=== PATIENT | male | born 1930 | race Caucasian/White ===

== ENCOUNTER 2016-08-02 23:08 | Inpatient (IN) | payer MEDICARE, OTHER ==
[~2016-08-02] VITALS: Ht 170.2 cm; Wt 61.5 kg
[2016-08-02 23:14] VITALS: BP 150/52; PULSE 66; RESP 18; O2SAT 98
--- NOTE | 2016-08-02 23:21 | ED.REPORT ---
HPI-General Illness Date of Service Aug 02, 2016 ED Provider: Niles Becerra DO An 85 year old male with a history of prostate cancer, hyperbaric treatments and hypertension presents to the ED complaining of throat pain and abdominal pain. The pt began experiencing this pain while alone at home today and felt "sicker and sicker." He became afraid and called his family this evening, telling them that he felt unwell. He stated that his "abdomen was on fire" and he vomited small amounts of clear liquid, though he denies chest pain. Per family, the pt looked unwell when they arrived. The pt was taking metoprolol until 1.5 weeks ago. Nursing Notes Stated Complaint: ABDOMINAL/CHEST/THROAT PAIN Chief Complaint: Male Abdominal Pain Nursing Notes Reviewed: Yes Allergies: Coded Allergies: No Known Allergies (Verified , 05/31/03) Scheduled Atorvastatin (Lipitor) 10 Mg Tab 10 MG PO DAILY Levothyroxine (Levothyroxine) 75 Mcg Tablet 75 MCG PO DAILY Metoprolol Succinate ER (Metoprolol Succinate ER) 25 Mg Tab.er.24h 12.5 MG PO DAILY Omeprazole (Omeprazole) 20 Mg Capsule.dr 20 MG PO DAILY Miscellaneous Medications Multivitamin (Multivitamins) 1 Each Capsule 1 EACH PO General Time Seen by MD: 23:20 Chief Complaint Other (Throat pain) Hx Obtained From: Patient, Other family... Arrived By: Walk-in Sudden in Onset?: No Onset Occurred: 5 - 8 hours ago Symptom Duration: Since onset Recent Healthcare: Recent doctor visit Similar Sx Previous: No Past Medical History Past Medical History hyperbaric treatment prostate cancer thyroid Past Surgical History none reported Smoking History Unknown if Ever Smoker Social History Other Social History: Good social support, Lives alone Ambulatory Status Independent Review of Systems throat pain Full Review of Systems Constitutional: Denies: Fever Respiratory: Denies: Non-productive cough, Shortness of breath Cardiovascular: Denies: Chest pain GI: Reports: Abdominal pain, Nausea, Vomiting Musculoskeletal: Denies: Back pain Skin: Denies Rash Complete sys rev & neg: except as marked. Physical Exam Vital Signs Vital Signs Date Time Temp Pulse Resp B/P Pulse Ox O2 Delivery O2 Flow Rate FiO2 08/03/16 03:34 62 16 136/51 99 Room Air 08/03/16 01:47 56 16 155/46 96 Room Air 08/02/16 23:14 37.0 66 18 150/52 98 Room Air Initial VS: Reviewed General/Constitutional: Awake, Alert Head / Eyes: Atraumatic, Normocephalic, PERRL, EOMI ENT: Atraumatic, Airway patent, Mucous membranes moist Neck: Atraumatic, Supple, Full range of motion Respiratory / Chest: Atraumatic, Breath sounds NL, Breath sounds = bilat, No respiratory distress Cardiovascular: Heart rate NL, Regular rhythm systolic ejection murmur Abdomen: Atraumatic, Soft Bowel Sounds / Distention: Positive: Bowel sounds hyperactive midline abdominal tenderness Back: Atraumatic, Full range of motion Upper Extremities Upper Extremity / MS: Atraumatic, Full range of motion Lower Extremity / Pelvis / MS: Atraumatic, Full range of motion Skin: Atraumatic, Color NL, No rash, Warm, Dry Neurologic: Oriented X3, Speech NL, No motor deficits, No sensory deficits Psychiatric: Affect NL, Mood NL Interpretation & Diagnostics Interpretation & Diagnostics: CT Pulmonary Angiogram: IMPRESSION: No evidence for PE. Cardiomegaly with prominence of the upper lobe and central pulmonary veins and bilateral pleural effusions. In the proper clinical setting pulmonary venous hypertension should be considered. Lab Results Interpretation Result Diagram: 08/02/16 2335 08/02/16 2335 Test 08/02/16 23:35 08/03/16 01:53 08/03/16 02:55 White Blood Count 6.8th/mm3 (3.8-10.1) Red Blood Count 3.88mil/mm3 (4.40-5.80) Hemoglobin 12.3g/dL (13.8-17.2) Hematocrit 38.2% (41.0-50.0) Mean Corpuscular Volume 98.5fL (81-100) Mean Corpuscular Hemoglobin 31.7pg (27.0-35.0) Mean Corpuscular Hemoglobin Concent 32.2% (32.0-37.0) Red Cell Distribution Width 13.7% (12.3-15.4) Platelet Count 246bil/L (150-400) Neutrophils (%) (Auto) 66.4% (40-74) Lymphocytes (%) (Auto) 15.4% (14-46) Monocytes (%) (Auto) 14.6% (4-12) Eosinophils (%) (Auto) 3.4% (0-5) Basophils (%) (Auto) 0.1% (0-3) D-Dimer < 0.50mg/L FEU (<0.50) Sodium Level 143mEq/L (134-144) Potassium Level 4.5mEq/L (3.5-5.2) Chloride Level 105mEq/L (97-108) Carbon Dioxide Level 25mmol/L (18-29) Blood Urea Nitrogen 27mg/dL (8-27) Creatinine 0.60mg/dL (0.76-1.27) Estimat Glomerular Filtration Rate 135mL/min (>59) Glucose Level 116mg/dL (60-99) Calcium Level 9.3mg/dL (8.5-10.1) Magnesium Level 2.1mg/dL (1.6-2.6) Total Bilirubin 0.3mg/dL (0.0-1.2) Aspartate Amino Transf (AST/SGOT) 26U/L (0-50) Alanine Aminotransferase (ALT/SGPT) 21U/L (0-44) Alkaline Phosphatase 78U/L (25-160) Total Protein 6.5g/dL (6.4-8.4) Albumin 3.8g/dL (3.4-5.0) Lipase 30U/L (13-60) Hold Myrick Top Tube Received (Received) Urine Color Yellow (YELLOW) Urine Appearance Clear (CLEAR,HAZY) Urine pH 6.5 (5.0-8.0) Urine Specific [place] 1.015 (1.003-1.035) Urine Protein Negativemg/dL (NEG,TRACE) Urine Glucose (UA) Negativemg/dL (NEGATIVE) Urine Ketones Negativemg/dL (NEGATIVE) Urine Occult Blood Negative (NEGATIVE) Urine Nitrite Negative (NEGATIVE) Urine Bilirubin Negative (NEGATIVE) Urine Urobilinogen Normalmg/dL (NORMAL) Urine Leukocyte Esterase Negative (NEGATIVE) Urine RBC 0-2/hpf (0-2) Urine WBC 0-5/hpf (0-5) Urine Epithelial Cells Occasional/hpf (NONE-MOD) Urine Crystals None seen (NONE SEEN) Urine Bacteria None/hpf (NONE-FEW) Urine Hyaline Casts None/lpf (NONE) Urine Granular Casts None seen (NONE SEEN) Urine Waxy Casts None seen (NONE SEEN) Urine Red Blood Cell Casts None seen (NONE SEEN) Urine White Blood Cell Casts None seen (NONE SEEN) Urine Mucus None seen (None Seen) Urine Trichomonas None seen (NONE SEEN) Urine Yeast None (NONE SEEN) Urine Culture Reflexed Not indicated Triglycerides Level 47mg/dL (0-149) Cholesterol Level 165mg/dL (100-199) LDL Cholesterol, Calculated 102.600mg/dL (0-99) VLDL Cholesterol 9.400mg/dL HDL Cholesterol 53mg/dL (>39) Cholesterol/HDL Ratio 3.11 (0.0-4.4) Thyroid Stimulating Hormone (TSH) 1.930uIU/mL (0.450-4.500) Pulse Oximetry Interpretation Pulse Oximetry Interpretation: 98% on room air Pulse Oximetry: Pulse Ox normal ECG Interpretation ECG Interpretation: normal sinus rhythm with a rate of 61 Time: 23:23 Interpreted by: ED physician ECG Interpretation: sinus or ectopic atrial rhythm with a rate of 60 Time: 01:32 Interpreted by: ED physician X-Ray Chest Interpretation Chest Xray Interpretation: chronic fibrotic changes vs. pulmonary edema Interpretation / Wet Read by: Wet read ED physician CT Abd / Pelvis Interpretation IMPRESSION: No CT findings to explain the patient's clinical symptoms. Interpretation / Wet Read by: Interpret - Radiologist Re-Eval/Medical Decision Med Decision/Clinical Course Severe epigastric abdominal pain rating up to his neck. Evidence of non-STEMI biochemically. CT chest and pelvis did not show dissection or pulmonary emboli or contra indications to heparin. Patient was heparinized, treated with aspirin , nitrates and fentanyl. He was admitted in stable condition. Source of Hx: Old records Time of Eval: 01:11 Patient Status: Condition improved Re-Evaluation/Progress Note: Pt rechecked, who is resting comfortably. He is informed of his radiology results and the need for admission. The diagnosis and plan for discharge are discussed. The pt understands and agrees with the plan. All questions are addressed at this time. Time of Eval: 03:20 Patient Status: Condition improved Re-Evaluation/Progress Note: Pt rechecked, who is resting. Pt is informed of radiology results and final plan for admission. Consultation : Referral / Consult Name: Rachel Crow DO Call Returned at: 03:23 Bilingual Hr Generalist: Agrees with eval, Agrees with plan, Accepts admit Note: Spoke with Dr. Sullenberger, hospitalist, regarding pt's case. Dr. Crow agrees with the evaluation and agrees to admit the pt. Counseled Regarding: Diagnosis, Lab results, Need for admission Discharge & Departure Primary Impression: Chest pain Chest pain type: unspecified Qualified Code: R07.9 - Chest pain, unspecified Additional Impressions: Abdominal pain Abdominal location: unspecified location Qualified Code: R10.9 - Unspecified abdominal pain Elevated troponin Disposition: ADMITTED TO HOSPITAL Discharge Condition All VS Reviewed: Yes Condition: Stable Referrals: Holland De Anda MD (PCP) Gauri Attestation Portions of this note were transcribed by Casie Rodriguez. I, Dr. Becerra personally performed the history, physical exam and medical decision-making; I reviewed and confirmed the accuracy of the information in the transcribed note. Signed by: Gauri Melgar, 08/03/16 and 0343. copies to: Holland De Anda MD, Todd P DO Aug 02, 2016 23:21 CASIE RODRIGUEZ Aug 02, 2016 23:40
[2016-08-02 23:42] LABS: BASOPHILS % (AUTO) 0.1 % (0-3); EOSINOPHILS % (AUTO) 3.4 % (0-5); MONOCYTES % (AUTO) 14.6 % (4-12); Mean Corpuscular Hemoglobin 31.7 pg (27.0-35.0); Mean Corpuscular Volume 98.5 fL (81-100); NEUTROPHILS % (AUTO) 66.4 % (40-74); Platelet Count 246 bil/L (150-400)
[2016-08-03] VITALS (11 sets, daily range): BP systolic 126–155; BP diastolic 46–99; PULSE 48–79; RESP 16–18; O2SAT 96–99
[2016-08-03 00:20] LABS: Magnesium 2.1 mg/dL (1.6-2.6)
[2016-08-03] MEDS ORDERED: Nitroglycerin 2% 1 Gm Ointment TOPICAL ONE (01:15)
[2016-08-03 02:03] LABS: APPEARANCE,URINE CLEAR (CLEAR,HAZY); COLOR,URINE YELLOW (YELLOW); OCCULT BLOOD,URINE NEGATIVE (NEGATIVE); PH,URINE 6.5 (5.0-8.0); UROBILINOGEN,URINE NORMAL (NORMAL)
[2016-08-03] MEDS ORDERED: fentaNYL-PF 50 mCg/mL 2 mL Inj IVPUSH PRN (02:20)
[2016-08-03] MEDS ORDERED: Heparin 5,000 Unit/mL Inj IVPUSH ONE (03:25)
[2016-08-03] MEDS ORDERED: Senna-Docusate 8.6-50 mg Tablet PO PRN (04:00)
[2016-08-03] MEDS ORDERED: Alum-Mag Hydrox-Simeth 30 mL Suspension PO PRN (04:00)
[2016-08-03] MEDS ORDERED: Ondansetron 2 mg/mL 2 mL Inj IVPUSH PRN (04:00)
[2016-08-03] MEDS ORDERED: Polyethylene Glycol (PEG) 17 Gm Powder PO PRN (04:00)
[2016-08-03] MEDS ORDERED: Atropine 1 mg/10 mL (Code) Syringe IVPUSH PRN (04:00)
--- NOTE | 2016-08-03 04:18 | PCM.HPMED ---
Subjective Date of Service Aug 03, 2016 Primary Provider: Admitting Physician: Rachel Crow DO Primary Care Physician: Holland De Anda MD Attending Physician: Rachel Crow DO Admit Status: From the Emergency Department Chief Complaint: Chest Pain History of Present Illness: 85yo man with history of prostate cancer s/p radiation reports 2 days of feeling a bit sick at his stomach which worsened last evening with intense epigastric pain, chest pain, and throat discomfort accompanied by an episode of vomiting. In the emergency room he had unconcerning EKG x2 but did have rising troponin: 0.016 to 0.019. CTA negative for PE but positive for cardiomegaly and bilateral pleural effusions. CT abdomen without explanation for abdominal pain but positive for aortic calcifications. One inch of Nitrobid was applied with good effect. At 0400 he is resting comfortably in the ER with only complaint being throat discomfort, reports that abdominal and chest pain has resolved. He denies cough, edema, heat/cold intolerance, numbness/tingling. He does have slow urinary stream associated with the prostate cancer radiation and has had hyperbaric treatments for that condition. Review of Systems: 14 point ROS is negative except as noted above in the HPI Allergies Coded Allergies: No Known Allergies (Verified , 05/31/03) Home Medications Daughter will bring in home medications this morning. She was not sure of names or doses. She told the ED that he stopped taking Metoprolol 1.5 weeks ago and that he takes a thyroid medication. 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 External ears normal, hard of hearing. Eyes: PERRLA, EOMI. Anicteric sclerae. Mouth: Mouth Normal, Mucous Membranes Moist/[place] Neck: Neck supple with full range of motion. Chest & Lungs: Clear to auscultation bilaterally with no crackles, wheezes, or rhonchi. Cardiovascular: Regular Rate/Rhythm, Normal S1, Normal S2, No Murmurs/Rubs/ Gallops Abdomen: mild epigastric tenderness, Non-distended, No masses, Normoactive bowel tones, Soft Musculoskeletal: Normal Range of Motion Extremities: No cyanosis/clubbing/edema bilaterally Neurological: Grossly Neurologically Intact, Cranial Nerves 2-12 Intact, Normal Speech Lab and Diagnostics Labs Laboratory Tests Test 08/02/16 23:35 08/03/16 01:53 08/03/16 02:55 White Blood Count 6.8th/mm3 (3.8-10.1) Red Blood Count 3.88mil/mm3 (4.40-5.80) Hemoglobin 12.3g/dL (13.8-17.2) Hematocrit 38.2% (41.0-50.0) Mean Corpuscular Volume 98.5fL (81-100) Mean Corpuscular Hemoglobin 31.7pg (27.0-35.0) Mean Corpuscular Hemoglobin Concent 32.2% (32.0-37.0) Red Cell Distribution Width 13.7% (12.3-15.4) Platelet Count 246bil/L (150-400) Neutrophils (%) (Auto) 66.4% (40-74) Lymphocytes (%) (Auto) 15.4% (14-46) Monocytes (%) (Auto) 14.6% (4-12) Eosinophils (%) (Auto) 3.4% (0-5) Basophils (%) (Auto) 0.1% (0-3) Activated Partial Thromboplast Time 25.2sec (22.8-33.0) D-Dimer < 0.50mg/L FEU (<0.50) Sodium Level 143mEq/L (134-144) Potassium Level 4.5mEq/L (3.5-5.2) Chloride Level 105mEq/L (97-108) Carbon Dioxide Level 25mmol/L (18-29) Blood Urea Nitrogen 27mg/dL (8-27) Creatinine 0.60mg/dL (0.76-1.27) Estimat Glomerular Filtration Rate 135mL/min (>59) Glucose Level 116mg/dL (60-99) Calcium Level 9.3mg/dL (8.5-10.1) Magnesium Level 2.1mg/dL (1.6-2.6) Total Bilirubin 0.3mg/dL (0.0-1.2) Aspartate Amino Transf (AST/SGOT) 26U/L (0-50) Alanine Aminotransferase (ALT/SGPT) 21U/L (0-44) Alkaline Phosphatase 78U/L (25-160) Troponin T 0.016ug/L (0.0-0.011) 0.019ug/L (0.0-0.011) Total Protein 6.5g/dL (6.4-8.4) Albumin 3.8g/dL (3.4-5.0) Lipase 30U/L (13-60) Hold Myrick Top Tube Received (Received) Urine Color Yellow (YELLOW) Urine Appearance Clear (CLEAR,HAZY) Urine pH 6.5 (5.0-8.0) Urine Specific [place] 1.015 (1.003-1.035) Urine Protein Negativemg/dL (NEG,TRACE) Urine Glucose (UA) Negativemg/dL (NEGATIVE) Urine Ketones Negativemg/dL (NEGATIVE) Urine Occult Blood Negative (NEGATIVE) Urine Nitrite Negative (NEGATIVE) Urine Bilirubin Negative (NEGATIVE) Urine Urobilinogen Normalmg/dL (NORMAL) Urine Leukocyte Esterase Negative (NEGATIVE) Urine RBC 0-2/hpf (0-2) Urine WBC 0-5/hpf (0-5) Urine Epithelial Cells Occasional/hpf (NONE-MOD) Urine Crystals None seen (NONE SEEN) Urine Bacteria None/hpf (NONE-FEW) Urine Hyaline Casts None/lpf (NONE) Urine Granular Casts None seen (NONE SEEN) Urine Waxy Casts None seen (NONE SEEN) Urine Red Blood Cell Casts None seen (NONE SEEN) Urine White Blood Cell Casts None seen (NONE SEEN) Urine Mucus None seen (None Seen) Urine Trichomonas None seen (NONE SEEN) Urine Yeast None (NONE SEEN) Urine Culture Reflexed Not indicated Result Diagram: 08/02/16 5497 08/02/16 7059 X-Rays, CTs and MRIs CT Pulmonary Angiogram: IMPRESSION: No evidence for PE. Cardiomegaly with prominence of the upper lobe and central pulmonary veins and bilateral pleural effusions. In the proper clinical setting pulmonary venous hypertension should be considered. X-Ray Chest Interpretation Chest Xray Interpretation: borderline cardiomegaly chronic fibrotic changes vs. pulmonary edema Interpretation / Wet Read by: Wet read ED physician, also reviewed by myself CT Abd / Pelvis Interpretation IMPRESSION: No CT findings to explain the patient's clinical symptoms. Interpretation / Wet Read by: Interpret - Radiologist In addition there are extensive aortic calcifications (Dr Lo) 12-lead ECG EKG x2 in the ER showing NSR with rate of 60 and 61 Assessment & Plan Very pleasant and largely deaf 85yo man presents with abdominal/chest/throat pain and rising troponins. Symptoms resolved with nitropaste. 1. Chest pain, POA, likely secondary to ACS with rising troponins, responsive to nitro paste. ROQUE score indicates intermediate risk of cardiac event. -Aspirin 324mg, Heparin 4500 given in ER -Heparin Drip per cardiac protocol ordered -Echo ordered for morning -NS 80ml/hr IV for maintenance -NPO pending Echo for possible other intervention today 2. Hypothyroidism POA, likely history but patient unsure, confirm with daughter today. 3. Heart condition unknown, daughter not sure, request outpatient records, may have been on Metoprolol in the past. PRN medications for nausea, constipation, GERD: Ondansetron, Maalox, Miralax, Senna Pain Evaluation: Adequate Pain Control GI Prophylaxis: Not indicated Resuscitation Status: DNR/DNI:Do Not Resuscitate/Intubate Limited Interventions: Medications and IV Fluid Attending Statement The patient was seen and examined together with house staff on 08/03/2016 and I agree with the history, exam and plan as outlined in the note above. Buzz Lo DO Aug 03, 2016 04:18 Rachel Crow DO August 16, 2016 05:39
[2016-08-03] MEDS ORDERED: Heparin 25K Unit/500mL 0.45 NS 25,000 UNIT in IV Premix 1 EACH IV ONE (04:20)
[2016-08-03] MEDS: 0.9% Sodium Chloride 1,000 ML IV SCH ×2 (04:33→17:46)
[2016-08-03] MEDS ORDERED: Heparin Protocol Boluses IVPUSH PRN (05:20)
[2016-08-03] MEDS ORDERED: Heparin 25K Unit/500mL 0.45 NS 25,000 UNIT in IV Premix 1 EACH IV SCH (05:20)
--- NOTE | 2016-08-03 05:48 | NUR ---
Admit Arrive from ER accompanied by dtr. A/O, forgetful, [place]. SBA to BS, pt weak and tremulous. Denies pain, dyspnea, N/V. No current abdominal pain. Void w/ BM on BSC. Admit done w/ pt as dtr left for home. Dtr did not know all of pt's meds or dose amts. Tele SR/SB, PVCs. Moderately high BP. RA sats in the high 90s. Resting quietly. Addendum: 08/03/16 at 0554 by TAMIA DE LA CRUZ RN IVF and cardiac heparin drip initiated.
--- NOTE | 2016-08-03 07:58 | DRSVH ---
PROCEDURE: X-RAY CHEST ONE VIEW, PORTABLE ([id number]) INDICATIONS: chest pain TECHNIQUE: One view of the chest was acquired. COMPARISON: [facility], CT, CT ANGIO CHEST PE, 08/03/2016, 2:33. [facility], CR, CH EST 1 VIEW, 09/15/2013, 0:31. [facility], CR, XR CHEST 2VW, 04/26/2016, 17:58. FINDINGS: Surgical changes and devices: None. Lungs and pleura: Chronic interstitial prominence. There is no complaint infiltrate in the right mid to lower lung zone. No pleural effusions or pneumothorax. Mediastinum: Mediastinal contours appear normal. Heart size is normal. Bones and chest wall: No suspicious bony lesions. Overlying soft tissues appear unremarkable. IMPRESSION: Chronic interstitial lung disease and possible superimposed pneumonia in the right mid to lower lung zone. Recommend clinical correlation. Dictated by: Bernice Palmer M.D. on 08/03/2016 at 7:55 Approved by: Bernice Palmer M.D. on 08/03/2016 at 7:56
[2016-08-03] MEDS: Sodium Chloride LOK Flush 10 mL Syringe IVFLUSH SCH ×3 (08:04→21:24)
--- NOTE | 2016-08-03 08:32 | PCM.PNMED ---
Subjective Date of Service Aug 03, 2016 Subjective He denies any chest pain or shortness of breath. He did have some abdominal discomfort yesterday. No nausea or vomiting. He does have some cognitive impairment and does not know what year it is. No overnight events. He does have intermediate level troponin elevations. His initial ECG with nonspecific ST depressions anterolateral segments. He did have a stent placed in a report about 5 years ago. Exam Vital Signs Vital Sign - Last Date Time Temp Pulse Resp B/P Pulse Ox O2 Delivery O2 Flow Rate FiO2 08/03/16 05:08 63 08/03/16 05:07 Room Air 08/03/16 04:20 36.6 18 153/59 98 Intake and Output 08/02/16 08/02/16 08/03/16 Cumulative From/Thru 14:59 22:59 06:59 08/02/16 23:14 - 08/03/16 06:11 Intake Total 0 ml 0 ml Output Total 300 ml 300 ml Balance -300 ml -300 ml Intake Oral 0 ml 0 ml Output Urine Total 300 ml 300 ml # Voids 1 1 # Bowel Movements 1 1 Exam Alert and oriented 2, does not know year. No distress. Fluent speech Anicteric sclera. Lungs are clear with normal rate and effort Heart is regular without murmur gallop or rub Abdomen soft nontender, flat Extremities are free of edema. Skin is free of rash or lesions. IVs and Medications Medications Reviewed: Medications were reviewed in detail Lab and Diagnostics Result Diagram: 08/02/16 2335 08/02/16 233 X-Rays, CTs and MRIs CT Pulmonary Angiogram: IMPRESSION: No evidence for PE. Cardiomegaly with prominence of the upper lobe and central pulmonary veins and bilateral pleural effusions. In the proper clinical setting pulmonary venous hypertension should be considered. X-Ray Chest Interpretation Chest Xray Interpretation: borderline cardiomegaly chronic fibrotic changes vs. pulmonary edema Interpretation / Wet Read by: Wet read ED physician, also reviewed by myself CT Abd / Pelvis Interpretation IMPRESSION: No CT findings to explain the patient's clinical symptoms. Interpretation / Wet Read by: Interpret - Radiologist In addition there are extensive aortic calcifications (Dr Lo) 12-lead ECG EKG x2 in the ER showing NSR with rate of 60 and 61 Assessment & Plan Very pleasant and largely deaf 85yo man presents with abdominal/chest/throat pain and rising troponins. Symptoms resolved with nitropaste. 1. Chest pain, POA, likely secondary to ACS with rising troponins, responsive to nitro paste. ROQUE score indicates intermediate risk of cardiac event. -Aspirin 324mg, Heparin 4500 given in ER -Heparin Drip per cardiac protocol ordered -Echo ordered for morning -NS 80ml/hr IV for maintenance -NPO pending Echo for possible other intervention today We will discuss with cardiology this morning. The patient will also be started on a beta babs. 2. Hypothyroidism POA, likely history but patient unsure, confirm with daughter today. 3. Heart condition unknown, daughter not sure, request outpatient records, may have been on Metoprolol in the past. We are trying to obtain coronary catheterization and PCI records from [facility] this morning. PRN medications for nausea, constipation, GERD: Ondansetron, Maalox, Miralax, Senna This patient as inpatient status with over 2 nights anticipated GI Prophylaxis: Not indicated Resuscitation Status: DNR/DNI:Do Not Resuscitate/Intubate Limited Interventions: Medications and IV Fluid Sy Byrd MD Aug 03, 2016 08:32
--- NOTE | 2016-08-03 09:45 | DRSVH ---
PROCEDURE: CT ANGIO CHEST PULMONARY EMBOLISM ([id number]) INDICATIONS: chest pain, nonstemi, abnominal pain TECHNIQUE: After the administration of intravenous contrast, 2 mm thick sections acquired from the pulmonary api meet to the posterior costophrenic angles. 3-dimensional maximum intensity projection (MIP) coronal a nd sagittal reformats were then acquired through the thorax. For radiation dose reduction, the follo wing was used: automated exposure control, adjustment of mA and/or kV according to patient size. COMPARISON: [facility], CT, CT ABD PELVIS W CON, 08/03/2016, 2:33. FINDINGS: Image quality: Excellent. Pulmonary arteries: Pulmonary arteries are normal in size, and demonstrate no intraluminal filling d efects to suggest central pulmonary embolism. Lungs and pleura: There is diffuse peripheral interstitial prominence. Lung volumes are low. No pleur al effusion or pneumothorax. Mediastinum: Heart size is normal, without pericardial effusion. No mediastinal or hilar adenopathy . Thoracic aorta is normal in caliber and enhancement. Scattered atheromatous calcifications are pre sent within the aortic arch. Esophagus is normal in caliber, without hiatal hernia. Bones and chest wall: No suspicious bony lesions. Ribs and thoracic spine appear intact throughout. Severe wedge compression deformities at T12 and L1 are unchanged. Thyroid gland is unremarkable. N o axillary or supraclavicular adenopathy. Abdomen: Visualized upper abdominal solid organs appear normal in the early arterial phase of enhanc ement. IMPRESSION: 1. No acute pulmonary embolus. 2. Diffuse interstitial prominence in the periphery of the lung. Differential considerations include fibrotic changes versus pulmonary edema. Note: The preliminary [facility] interpretation and the final report are concordant. Dictated by: Herminia Greer M.D. on 08/03/2016 at 9:25 Approved by: Herminia Greer M.D. on 08/03/2016 at 9:44
--- NOTE | 2016-08-03 09:53 | DRSVH ---
PROCEDURE: CT ABDOMEN AND PELVIS WITH CONTRAST ([id number]) INDICATIONS: chest pain, nonstemi, abnominal pain TECHNIQUE: After the administration of intravenous contrast, 5 mm thick sections acquired from the diaphragm to the symphysis. 5 mm coronal and sagittal reformats were acquired. For radiation dose reduction, the following was used: automated exposure control, adjustment of mA and/or kV according to patient leland marks. COMPARISON: [facility], CR, XR CHEST 2VW, 04/26/2016, 17:58. FINDINGS: Image quality: Excellent. ABDOMEN: Lung bases: Interlobular septal thickening is present within the periphery of the lung bases suggesti ng pulmonary fibrosis. No pleural effusion or pneumothorax. The heart is mildly enlarged. Solid organs: Liver and spleen are normal in size and enhancement. Gallbladder is surgically absent . Biliary system is non dilated. Pancreas enhances normally. No adrenal nodules. Kidneys demonstr ate normal size and enhancement, without hydronephrosis. Multiple low density cystic lesions are pre sent within the right kidney which likely represent simple renal cysts. Peritoneum and bowel: There is a small hiatal hernia. Bowel loops demonstrate normal wall thickness a nd caliber. The appendix is not visualized; however there is no discrete right lower quadrant fluid o r fat stranding to suggest acute appendicitis. There are scattered sigmoid diverticula. No evidence f or diverticulitis. No free fluid or air. Nodes and vessels: No retroperitoneal or mesenteric adenopathy by size criteria. Aorta and inferior vena cava are normal in size. There are scattered atheromatous calcifications throughout the aorta and iliac arteries bilaterally. Miscellaneous: No ventral hernias. PELVIS: Genitourinary: Bladder wall thickness is normal. Miscellaneous: No inguinal hernias or adenopathy. Bones: No suspicious bony lesions. No vertebral body compression fractures. IMPRESSION: 1. No acute intra-abdominal findings. The appendix is not visualized; however there are no ancillary findings to suggest acute appendicitis. 2. Diverticulosis. No acute diverticulitis. Note: The preliminary [facility] interpretation and the final report are concordant. Dictated by: Herminia Greer M.D. on 08/03/2016 at 9:44 Approved by: Herminia Greer M.D. on 08/03/2016 at 9:52
[2016-08-03] MEDS ORDERED: OMEP20CA11 PO (09:58)
[2016-08-03] MEDS ORDERED: ATRV10T PO (09:58)
[2016-08-03] MEDS ORDERED: LEVO75TA4 PO (09:58)
[2016-08-03] MEDS ORDERED: METO25TA99 PO (09:58)
[2016-08-03] MEDS ORDERED: MULT1CAP33 PO (10:04)
--- NOTE | 2016-08-03 11:42 | DRSVH ---
[facility] [address] [place] [place] [address] Echocardiogram Report Name: LORENE YEPEZ FStudy Date: Height: 67 in Hospital Exam Location: [facility] Weight: 131 lb Gender: Male BSA: 1.7 m2 : 1930 Age: 85 yrs BP: 153/59 mmHg Reason For Study: CHEST PAILN Ordering Physician: [facility] Performed By: Carisa Burleson Referring Physician: Dr. Holland De Anda Interpretation Summary The ejection fraction is estimated to be 50-55%. Mild inferolateral hypkinesis. The right ventricle is at the upper limits of normal in size. The left atrium is severely dilated. There is mild mitral regurgitation. There is mild aortic valve sclerosis. There is mild aortic regurgitation. There is moderate tricuspid regurgitation. The right ventricular systolic pressure is estimated at 29 mmHg assuming a right atrial pressure of 3 mm Hg. Procedure: A two-dimensional transthoracic echocardiogram with color flow and Doppler was performed. The study quality was technically good. There is no prior echocardiogram noted for this patient. The patient was in a bradycardic rhythm during the exam. Left Ventricle: The left ventricle is normal in size, wall thickness, and systolic function without any focal wall motion abnormalities. The ejection fraction is estimated to be 50-55%. Mild inferolateral hypkinesis. Spectral Doppler of the mitral valve shows a normal E/A wave ratio. Right Ventricle: The right ventricle is at the upper limits of normal in size. The right ventricular systolic function is normal. Atria: The left atrium is severely dilated. The right atrium is mildly dilated. There is no Doppler evidence for an atrial septal defect. Mitral Valve: The mitral valve leaflets appear mildly thickened, but open well. There is mild mitral regurgitation. Aortic Valve: The aortic valve is trileaflet. The aortic valve opens well. The aortic valve is slightly calcified. There is mild aortic valve sclerosis. There is mild aortic regurgitation. Tricuspid Valve: The tricuspid valve leaflets are thin and pliable. There is moderate tricuspid regurgitation. The right ventricular systolic pressure is estimated at 29 mmHg assuming a right atrial pressure of 3 mm Hg. Pulmonic Valve: The pulmonic valve leaflets are thin and pliable; valve motion is normal. There is a trace or physiologic amount of pulmonic regurgitation. Great Vessels: The aortic root is normal size. The dimensions of the ascending aorta are normal. The pulmonary artery is normal size. The IVC is of normal diameter and collapses greater than 50% with a sniff. This suggests a low right atrial pressure of 3 mm Hg. Pericardium/ Pleura There is no pericardial effusion. There is no pleural effusion. MMode/2D Measurements & Calculations LVIDd: 4.1 cm LA dimension: 4.3 cm RA long axis LVOT diam: 2.2 cm LVIDs: 2.8 cm AoV Opening FS: 30.6 % LA A2 area: 31.4 cm RA area EPSS: 0.48 cm LA A4 area: 30.9 cm Ao root diam IVSd: 1.0 cm LA length (vol) : 20.9 cm LVPWd: 0.98 cm RA vol Aortic Jxn: 2.4 cm LA vol: 120.5 ml : 67.4 ml asc Aorta Diam LA vol index RA : 39.9 mm/ Ao Arch Diam (Prox : 71.3 ml/m2 RVDd major Trans): 2.6 cm : 6.6 cm LV singh. diameter/BSA LV sys. diameter/BSA RVD1 (basal) RVD2 (mid): 3.8 cm (cm/m^2): 2.4 (cm/m^2): 1.7 Doppler Measurements & Calculations Ao V2 max MV E max gray MV E/A: 1.1 TR max gray : 146.0 cm/sec : 54.7 cm/sec Pulm A Revs Dur : 256.6 cm/sec Ao max PG MV A max gray TR max P.3 mmHg : 8.5 mmHg : 51.7 cm/sec MV A dur: 0.12 sec PA V2 max Ao mean PG MV P1/2t : 126.7 cm/sec : 79.3 msec PA mean P.9 mmHg LVOT Max Gray MR ERO: 0.06 cm2 PA Accel Time : 79.4 cm/sec : 0.07 sec VIKAS(I,D): 1.9 cm sev ratio AI P1/2t : 539.8 msec AI dec slope : 194.0 cm/s2c MV dec time MV P1/2t max gray Ao V2 mean LV V1 max PG : 0.27 sec : 101.4 cm/sec MVA(P1/2t) Ao V2 VTI: 36.0 cm LV V1 VTI: 19.0 cm : 2.8 cm2 VIKAS(V,D): 2.0 cm2 MR flow rate PA V2 mean VIKAS indexed to BSA Pulm A Revs Dur - MV : 38.2 cm3/sec : 79.9 cm/sec (cm^2/m^2): 1.2 A Dur: 0.07 msec MR PISA radius Electronically signed by: Perez Loza on Reading Physician:08/03/2016 11:41 AM
--- NOTE | 2016-08-03 13:53 | NUR ---
Social Work- Initial Assessment Data: See Initial Assessment. Pt is a 85 year old male admitted 08/03/16 for Abdominal Pain and Chest Pain per H&P. Pt's insurance is [facility] and [employer] [facility]. Pt's PCP is Holland De Anda MD in [place], though pt states that he is looking to transfer PCP care to [place]. SW met with pt at bedside to discuss discharge plan, SW role explained. Pt alert and oriented x3. Pt resides at home alone in [place] where he receives assistance with ADLs from his daughter, Leona. Leona assists pt with meals, cleaning, medication management, driving, financial accountant. Pt is able to dress and clean himself independently and has grab bars in his shower. Pt has two homes, one in [place] and one in [place]. Pt states that he has been residing in [place] where he is about five blocks away from his daughter. Pt's grandson [place] Sung is also involved in pt's care, including home repairs, housekeeping, and emotional support. Pt [place] walker at [place] and does not drive. Pt has 6 steps into his home which he navigates successfully using railings. Pt has no HH or SNF history. Pt has no LTC or VA benefits. Pt states his DPOA is daughter Leona [phone]. SW encouraged him to ask Leona to bring in copy of DPOA paperwork. Pt requested information about assisted living, as he is aware that this may be the next step when he cannot live independently any longer. SW provided information regarding assisted living, including brochures and informative packets. Pt is aware that the resources provided by [facility] are not the only assisted living facilities in the area and that these packets are in no way preferences towards these facilities. Pt anticipated to discharge home with daughter to transport via POV. No anticipated discharge needs. SW will continue to follow, R/O Home Health at discharge. Assessment: Pt who resides home alone with assistance from daughter. Plan: Pt anticipated to discharge home with daughter to transport via POV. No anticipated discharge needs. SW will continue to follow, R/O Home Health at discharge. LINDA Branham Addendum: 08/03/16 at 1405 by SUSANA JEREZ SS Amended: Links added. Addendum: 08/03/16 at 1531 by SUSANA BAUTISTA [facility] spoke with daughter Leona and son Derrick at bedside with pt. [facility] role explained. Leona would like more information about private caregiving, [facility] provided her with "Hiring In Home Caregivers" packet and list through [facility]. Morena Jerez, VEST PRESSER
[2016-08-04 00:36] VITALS: PULSE 75
--- NOTE | 2016-08-04 01:36 | CONS ---
[address] [address] CONSULTATION REPORT PATIENT: LORENE YEPEZ : 1930 MR#: [id number] ADMIT: 08/03/2016 JOB ID: [id number] DATE OF SERVICE: 08/03/2016 CHIEF COMPLAINT: Abdominal pain and throat pain. HISTORY OF PRESENT ILLNESS: The patient is an 85-year-old man with history of coronary artery disease status post PCI with bare-metal stent to proximal RCA most recently in 2003. Cardiology is consulted to assist with management because the patient presented with severe burning abdominal pain. History is obtained from patient, his daughter Leona, and his son Derrick. The patient's recollection of the events, unfortunately, is complicated by his dementia. What he remembers is that he was at home and he had severe extreme burning pain in his abdomen. He does not recall associated chest pain, throat pain, nausea or vomiting. 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 So what she did, is she took him to [facility] and he was transferred subsequently to [facility]. She says that her father vomited clear emesis and also reported to her severe throat pain. It is not clear whether it was before or after he vomited. 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 PAST MEDICAL HISTORY: 1. Coronary artery disease as noted above. He had basically unstable angina. He underwent elective cardiac catheterization in 2003. Bare-metal stent was deployed to proximal right coronary artery, which unfortunately was occluded. The LAD was diffusely diseased. Fractional flow reserve at that time was 0.84 so it was not judged to be hemodynamically significant and was managed medically. a. The patient does not exactly recall the symptoms. His daughter and son think that his anginal equivalent was severe dyspnea on exertion, and they do not exactly recall if he had chest discomfort or neck pain with that. 2. Prostate cancer treated with intensity-modulated radiation therapy for prostate cancer in 2010, complicated by what sounds like radiation colitis, treated with hyperbaric oxygen chamber treatments. Most recent treatment was July 30. 3. Hyperlipidemia. 4. BPH. 5. Cholecystectomy. 6. Appendectomy. FAMILY HISTORY: Significant for dementia and heart disease in brother. Father with dementia. Mother with possibly blocked arteries at age 91. SOCIAL HISTORY: He is a lifetime nonsmoker. He says he lives with his daughter Leona. ALLERGIES: No known drug allergies. HOME MEDICATIONS: 1. Lipitor 10 mg daily. 2. Toprol-XL 25 mg pill, half a pill daily. 3. Levothyroxine 25 mcg daily. 4. Nitroglycerin as needed. REVIEW OF SYSTEMS: Significant for burning throat pain, emesis, and this severe abdominal pain is problem. Otherwise, a 10 point review of systems is negative. PHYSICAL EXAMINATION: Very pleasant elderly man in no apparent distress. Head: Normocephalic, atraumatic. Male pattern baldness. Temperature 36.3. Blood pressure 126/64, up to 164/46. Pulse 48, up to 79 beats per minute. Satting 98% to 99% on room air. Eyes: No scleral icterus. Neck: Supple. No carotid bruits. Heart: Normal S1, S2. No murmurs. Lungs: Clear to auscultation anteriorly. Abdomen: Soft with positive bowel sounds. No hepatosplenomegaly. Extremities: Warm, well perfused. No clubbing, cyanosis, edema. Skin: No rashes or lesions. Echocardiogram showed EF 50% to 55% with mild inferolateral hypokinesis. No significant valvular abnormalities were seen. No prior comparison was made. The patient's CBC is reassuring for age. Troponin T was most recently 0.021. Lipids are at goal. TSH is normal. Electrolytes normal. Transaminases are normal. Admission EKG showed normal sinus rhythm, normal axis. No left ventricular hypertrophy. No significant ST-segment changes on personal review. CT of the abdomen showed no abdominal aortic aneurysm or any other abdominal pathology to explain symptoms. CT PE protocol showed no pulmonary embolism. There was diffuse interstitial prominence in the periphery of the lung with differential diagnosis including fibrotic change versus pulmonary edema. ASSESSMENT AND PLAN: In summary, this is a delightful 85-year-old man with dementia, coronary artery disease, status post percutaneous intervention to occluded right coronary artery basically 15 years ago, who comes in with a minimally elevated troponin and history of abdominal discomfort. No cause of abdominal discomfort has been identified. He does not recall experiencing any chest pain or shortness of breath. Daughter recalls nausea and that he complained to her of throat pain. It is not clear whether severe abdominal pain caused him to have tachycardia and caused the troponin bump or whether this was a primary cardiac process. Either way, he is not a good candidate for invasive therapy due to advanced age, frailty and memory problems. I recommend for him to be treated medically with 48 hours of heparin drip and once that is completed he can be safely discharged home on his home medications. Right now, we are holding his Toprol-XL due to bradycardia. Will monitor closely and decide whether this is a medication that needs to be continued as an outpatient. Thank you very much for the opportunity to evaluate this patient.
[2016-08-04 03:16] LABS: BASOPHILS % (AUTO) 0.1 % (0-3); EOSINOPHILS % (AUTO) 7.3 % (0-5); MONOCYTES % (AUTO) 16.9 % (4-12); Mean Corpuscular Hemoglobin 32.1 pg (27.0-35.0); Mean Corpuscular Volume 97.5 fL (81-100); NEUTROPHILS % (AUTO) 54.3 % (40-74); Platelet Count 219 bil/L (150-400)
[2016-08-04 04:03] VITALS: BP 129/62; PULSE 60; RESP 18; O2SAT 95
[2016-08-04] MEDS: 0.9% Sodium Chloride 1,000 ML IV SCH (05:01)
--- NOTE | 2016-08-04 06:19 | NUR ---
Heparin gtt Pt currently infusing at 875units/hr of heparin gtt; therapeutic PTT x1. VSS, tele SB/SR 50s-80s. Pt denies any pain, dyspnea, or discomfort. Slightly forgetful and impulsive; bed alarm in place.
[2016-08-04 08:15] VITALS: BP 150/55; PULSE 81; RESP 16; O2SAT 95
[2016-08-04] MEDS: Sodium Chloride LOK Flush 10 mL Syringe IVFLUSH SCH (08:30)
[2016-08-04 10:39] VITALS: PULSE 62
[2016-08-04] MEDS ORDERED: ASPI81TA3 PO (11:18)
--- NOTE | 2016-08-04 11:25 | PCM.DIMED ---
Discharge Instructions Date of Service Aug 04, 2016 Dates of Hospitalization Aug 03, 2016 at 03:41 Discharge Diagnosis Discharge Diagnosis Dyspepsia and abdominal pain; chest pain, noncardiac; ruled out for myocardial infarction Medication Instructions No medications have been changed. We recommend regular use of psyllium powder ( Metamucil) which works both for constipation and diarrhea by providing fiber to the colon. We recommend to continue your gastric acid medication omeprazole, and to utilize Tums (calcium carbonate) as needed for stomach discomfort. Diet No restrictions Activity No restrictions Call your provider Other (dehydration, weight loss greater than 4 pounds over 2 days, chest or breathing complaints. ) Patient Instructions Evaluation of the heart revealed no signs of myocardial infarction. It is not clear what caused discomfort in the chest and throat, but this does not seem to be due to the heart. Follow-up plan Contact your primary care doctor for a follow-up posthospitalization appointment. You should discuss further management of abdominal pain, vomiting or diarrhea. Follow-up Provider: Holland De Anda MD Follow-up with PCP in: 1 week Benjamin William MD Aug 04, 2016 11:25
--- NOTE | 2016-08-04 11:37 | NUR ---
Social Work: Discharge Data: Pt is on day 1 of hospitalization. EMR reviewed. D/C orders are in. requested ALL RN for pt. MEAT CUTTER met with pt, states no preference for HH company after viewing choice list. MEAT CUTTER referred to rotating calendar, [facility] referred, access given, F2F ready for MD to sign. MEAT CUTTER called pt's daughter and notified her in a voice mail that pt will be discharging today. No further d/c planning needs at this time. MEAT CUTTER will continue to follow if needs arise. Assessment: Pt who is independent at baseline. Plan: Pt will d/c home via POV with [facility]. No further d/c planning needs at this time. MEAT CUTTER will continue to follow if needs arise. LINDA Arreola
[2016-08-04 12:09] VITALS: BP 126/49; PULSE 63; RESP 16; O2SAT 99
--- NOTE | 2016-08-04 14:15 | NUR ---
Pt to be discharged Pt received discharge orders, and I have given him and his daughter written and verbal discharge instructions. His only new medication was a baby ASA. Pt's daughter is just waiting to talk to the Dr. and then pt will be discharged.
[2016-08-04] MEDS ORDERED: LEVO75TA4 PO (14:41)
--- NOTE | 2016-08-04 16:01 | NUR ---
Discharged at 1545hrs Pt discharged with family.
--- NOTE | 2016-08-04 18:51 | PCM.DC.MED ---
Discharge Summary Date of Service Aug 04, 2016 Dates of Hospitalization Date of Hospital Admission Aug 03, 2016 at 03:41 Date of Discharge: Aug 04, 2016 Providers: Admitting Physician: Rachel Crow DO Primary Care Physician: Holland De Anda MD Attending Physician: Rachel Crow DO Diagnosis at Time of Discharge Diagnosis at Time of Discharge Dyspepsia and abdominal pain; chest pain, noncardiac; ruled out for myocardial infarction Consultations Cardiology: "ASSESSMENT AND PLAN: In summary, this is a delightful 85-year-old man with dementia, coronary artery disease, status post percutaneous intervention to occluded right coronary artery basically 15 years ago, who comes in with a minimally elevated troponin and history of abdominal discomfort. No cause of abdominal discomfort has been identified. He does not recall experiencing any chest pain or shortness of breath. Daughter recalls nausea and that he complained to her of throat pain. It is not clear whether severe abdominal pain caused him to have tachycardia and caused the troponin bump or whether this was a primary cardiac process. Either way, he is not a good candidate for invasive therapy due to advanced age, frailty and memory problems. I recommend for him to be treated medically with heparin drip and once that is completed he can be safely discharged home on his home medications. Right now, we are holding his Toprol-XL due to bradycardia. Will monitor closely and decide whether this is a medication that needs to be continued as an outpatient." Ruby Maher MD 08/04/16 0037 Procedures XRay, CTs & MRIs CT Pulmonary Angiogram: IMPRESSION: No evidence for PE. Cardiomegaly with prominence of the upper lobe and central pulmonary veins and bilateral pleural effusions. In the proper clinical setting pulmonary venous hypertension should be considered. X-Ray Chest Interpretation Chest Xray Interpretation: borderline cardiomegaly chronic fibrotic changes vs. pulmonary edema Interpretation / Wet Read by: Wet read ED physician, also reviewed by myself CT Abd / Pelvis Interpretation IMPRESSION: No CT findings to explain the patient's clinical symptoms. Interpretation / Wet Read by: Interpret - Radiologist In addition there are extensive aortic calcifications (Dr Lo) ECG 12 Lead EKG x2 in the ER showing NSR with rate of 60 and 61 Brief History History of Present Illness (per admission note): 85yo man with history of prostate cancer s/p radiation reports 2 days of feeling a bit sick at his stomach which worsened last evening with intense epigastric pain, chest pain, and throat discomfort accompanied by an episode of vomiting. In the emergency room he had unconcerning EKG x2 but did have rising troponin: 0.016 to 0.019. CTA negative for PE but positive for cardiomegaly and bilateral pleural effusions. CT abdomen without explanation for abdominal pain but positive for aortic calcifications. One inch of Nitrobid was applied with good effect. At 0400 he is resting comfortably in the ER with only complaint being throat discomfort, reports that abdominal and chest pain has resolved. He denies cough, edema, heat/cold intolerance, numbness/tingling. He does have slow urinary stream associated with the prostate cancer radiation and has had hyperbaric treatments for that condition. Hospital Course 1. Chest pain, POA, presumed secondary to ACS with rising troponins, symptoms were responsive to nitro paste. Treated with Aspirin 324mg, Heparin Drip per cardiac protocol ordered. Serial troponins were 0.016, 0.019, 0.021, indicating very minor cardiac injury. 2. Hypothyroidism POA, TSH was normal 1.93. No changes to chronic medications. 3. Prostate cancer, chronic. History of radiation enteritis with chronic diarrhea. Bowel function was generally stable. 4. Epigastric pain and nausea. These symptoms resolved spontaneously. Etiology is unclear. . Exam Vital Signs (Last) Date Time Temp Pulse Resp B/P Pulse Ox O2 Delivery O2 Flow Rate FiO2 08/04/16 10:39 62 08/04/16 08:15 36.9 16 150/55 95 Room Air Exam General: Elderly man with some cognitive impairment, no acute distress HEENT: sclerae anicteric, oral mucosa moist Neck: no JVD Chest: clear to auscultation Cardiac: S1S2, no murmur Abdomen: BS normal, scaphoid, non-tender Extremities: no edema Neuro: Alert, communicative, cranial nerves symmetric, motor strength and coordination generally normal Test 08/02/16 23:35 08/03/16 01:53 08/03/16 02:55 08/03/16 08:40 D-Dimer < 0.50mg/L FEU (<0.50) Magnesium Level 2.1mg/dL (1.6-2.6) Total Bilirubin 0.3mg/dL (0.0-1.2) Aspartate Amino Transf (AST/SGOT) 26U/L (0-50) Alanine Aminotransferase (ALT/SGPT) 21U/L (0-44) Alkaline Phosphatase 78U/L (25-160) Total Protein 6.5g/dL (6.4-8.4) Albumin 3.8g/dL (3.4-5.0) Lipase 30U/L (13-60) Hold Myrick Top Tube Received (Received) Urine Color Yellow (YELLOW) Urine Appearance Clear (CLEAR,HAZY) Urine pH 6.5 (5.0-8.0) Urine Specific [place] 1.015 (1.003-1.035) Urine Protein Negativemg/dL (NEG,TRACE) Urine Glucose (UA) Negativemg/dL (NEGATIVE) Urine Ketones Negativemg/dL (NEGATIVE) Urine Occult Blood Negative (NEGATIVE) Urine Nitrite Negative (NEGATIVE) Urine Bilirubin Negative (NEGATIVE) Urine Urobilinogen Normalmg/dL (NORMAL) Urine Leukocyte Esterase Negative (NEGATIVE) Urine RBC 0-2/hpf (0-2) Urine WBC 0-5/hpf (0-5) Urine Epithelial Cells Occasional/hpf (NONE-MOD) Urine Crystals None seen (NONE SEEN) Urine Bacteria None/hpf (NONE-FEW) Urine Hyaline Casts None/lpf (NONE) Urine Granular Casts None seen (NONE SEEN) Urine Waxy Casts None seen (NONE SEEN) Urine Red Blood Cell Casts None seen (NONE SEEN) Urine White Blood Cell Casts None seen (NONE SEEN) Urine Mucus None seen (None Seen) Urine Trichomonas None seen (NONE SEEN) Urine Yeast None (NONE SEEN) Urine Culture Reflexed Not indicated Triglycerides Level 47mg/dL (0-149) Cholesterol Level 165mg/dL (100-199) LDL Cholesterol, Calculated 102.600mg/dL (0-99) VLDL Cholesterol 9.400mg/dL HDL Cholesterol 53mg/dL (>39) Cholesterol/HDL Ratio 3.11 (0.0-4.4) Thyroid Stimulating Hormone (TSH) 1.930uIU/mL (0.450-4.500) Troponin T 0.021ug/L (0.0-0.011) Test 08/04/16 03:10 08/04/16 09:28 White Blood Count 7.1th/mm3 (3.8-10.1) Red Blood Count 3.65mil/mm3 (4.40-5.80) Hemoglobin 11.7g/dL (13.8-17.2) Hematocrit 35.6% (41.0-50.0) Mean Corpuscular Volume 97.5fL (81-100) Mean Corpuscular Hemoglobin 32.1pg (27.0-35.0) Mean Corpuscular Hemoglobin Concent 32.9% (32.0-37.0) Red Cell Distribution Width 13.6% (12.3-15.4) Platelet Count 219bil/L (150-400) Neutrophils (%) (Auto) 54.3% (40-74) Lymphocytes (%) (Auto) 21.1% (14-46) Monocytes (%) (Auto) 16.9% (4-12) Eosinophils (%) (Auto) 7.3% (0-5) Basophils (%) (Auto) 0.1% (0-3) Sodium Level 137mEq/L (134-144) Potassium Level 3.6mEq/L (3.5-5.2) Chloride Level 104mEq/L (97-108) Carbon Dioxide Level 22mmol/L (18-29) Blood Urea Nitrogen 20mg/dL (8-27) Creatinine 0.48mg/dL (0.76-1.27) Estimat Glomerular Filtration Rate 175mL/min (>59) Glucose Level 101mg/dL (60-99) Calcium Level 8.3mg/dL (8.5-10.1) Activated Partial Thromboplast Time 62.7sec (22.8-33.0) Discharge Medications Discharge Medications Aspirin Chew (Aspirin Chew) 81 Mg Chew 81 MG PO DAILY Prescribed by: MONO SHAH MD Atorvastatin (Lipitor) 10 Mg Tab 10 MG PO DAILY (Reported) Levothyroxine (Levothyroxine) 75 Mcg Tablet 75 MCG PO DAILY Prescribed by: MONO SHAH MD Metoprolol Succinate ER (Metoprolol Succinate ER) 25 Mg Tab.er.24h 12.5 MG PO DAILY (Reported) Omeprazole (Omeprazole) 20 Mg Capsule.dr 20 MG PO DAILY (Reported) Miscellaneous Medications Multivitamin (Multivitamins) 1 Each Capsule 1 EACH PO (Reported) Additional med instructions No medications have been changed. We recommend regular use of psyllium powder ( Metamucil) which works both for constipation and diarrhea by providing fiber to the colon. We recommend to continue your gastric acid medication omeprazole, and to utilize Tums (calcium carbonate) as needed for stomach discomfort. Followup Plan Disposition: Home with home health services. The course was discussed with his daughter Leona. Follow-up plan Contact your primary care doctor for a follow-up posthospitalization appointment. You should discuss further management of abdominal pain, vomiting or diarrhea. Discharge Diet: No restrictions Discharge Activity: No restrictions Patient Instructions Evaluation of the heart revealed no signs of myocardial infarction. It is not clear what caused discomfort in the chest and throat, but this does not seem to be due to the heart. Follow-up Provider: Holland De Anda MD Follow-up with PCP in: 1 week Time spent 35 minutes copies to: Holland De Anda MD, Jeffrey W MD Aug 04, 2016 11:26
== END 2016-08-04 15:50 | disposition home health service (06) | DRG 313 ==
LOC: SED 23:08 → PCC 08-03 03:41
PROVIDERS: ADMIT Internal Medicine; ATTEND Internal Medicine
DX: R07.89 Other chest pain (principal); K52.0 Gastroenteritis and colitis due to radiation; R10.13 Epigastric pain; I10 Essential (primary) hypertension; E03.9 Hypothyroidism, unspecified; I25.10 Atherosclerotic heart disease of native coronary artery without angina pectoris; F03.90 Unspecified dementia, unspecified severity, without behavioral disturbance, psychotic disturbance, mood disturbance, and anxiety; E78.5 Hyperlipidemia, unspecified; Z66 Do not resuscitate; Z85.46 Personal history of malignant neoplasm of prostate; Z95.5 Presence of coronary angioplasty implant and graft